=== PATIENT | female | born 1940 | race Caucasian/White ===

== ENCOUNTER 2016-12-25 08:56 | Outpatient (CLI) | payer MEDICARE, BC | END 2016-12-25 08:57 | disposition home or self-care (01) | LOC: LAB 08:56 | PROVIDERS: ATTEND Physician Assistant Medical | DX: I10 Essential (primary) hypertension (principal) | CPT/HCPCS: 36415; 86140 ==

== ENCOUNTER 2017-02-02 14:46 | Outpatient (CLI) | payer MEDICARE, BC | END 2017-02-02 14:47 | disposition critical access hospital (66) | LOC: EMS 14:46 | PROVIDERS: ATTEND Surgery | DX: R07.9 Chest pain, unspecified (principal) | CPT/HCPCS: A0425; A0427 ==

== ENCOUNTER 2017-02-02 14:59 | Emergency (ER) | payer MEDICARE, BC ==
[2017-02-02] MEDS ORDERED: NITROGLYCERIN 2% PASTE TOP STA (15:19)
[2017-02-02 15:46] LABS: BASOPHILS % (AUTO) 0.5 %; EOSINOPHILS # (AUTO) 0.2 10^3/uL (0.0-0.7); EOSINOPHILS % (AUTO) 2.6 %; HCT - HEMATOCRIT 40.9 % (37.0-47.0); HGB - HEMOGLOBIN 13.6 g/dL (12.0-16.0); LYMPHOCYTES # (AUTO) 1.3 10^3/uL (1.5-3.5); LYMPHOCYTES % (AUTO) 17.7 %; MEAN CORPUSCULAR HEMOGLOBIN 32.3 pg (27.0-31.0); MEAN CORPUSCULAR HGB CONC 33.3 g/dL (32.0-36.0); MEAN CORPUSCULAR VOLUME 97.2 fL (81.0-99.0); MEAN PLATELET VOLUME 7.3 fL (7.9-10.8); MONOCYTES # (AUTO) 0.4 10^3/uL (0.0-1.0); NEUTROPHILS # (AUTO) 5.3 10^3/uL (1.5-6.6); NEUTROPHILS % (AUTO) 73.2 %; RED BLOOD COUNT 4.21 10^6/uL (4.20-5.40); RED CELL DISTRIBUTION WIDTH 13.4 % (12.0-15.0); UNCORRECTED WHITE BLOOD COUNT 7.2 x10^3/uL; WHITE BLOOD COUNT 7.2 x10^3/uL (4.8-10.8)
--- NOTE | 2017-02-02 15:53 | XRAY Preliminary Report ---
Exam: XR CHEST 2 VIEW PA/LAT IMPRESSION: Left basilar infiltrate or atelectasis. [facility] SITE ID: [id number]
--- NOTE | 2017-02-02 15:55 | XRAY Report ---
EXAM: CHEST RADIOGRAPHY EXAM DATE: 02/02/2017 03:41 PM. CLINICAL HISTORY: Chest pain . COMPARISON: 09/24/2006. TECHNIQUE: 2 views. FINDINGS: Lungs/Pleura: Scarring or atelectasis in right costophrenic angle. Streaky atelectasis versus infiltr ate in left base. No consolidation, effusion, or pneumothorax. Mediastinum: Heart and mediastinal contours are unremarkable. Upper lobe vessels not distended. Other: Osteopenia, degenerative changes. IMPRESSION: Left basilar infiltrate or atelectasis. [facility] Referring Provider Line: [phone] SITE ID: [id number]
[2017-02-02 15:57] LABS: PT - PROTHROMBIN TIME 11.1 secs (9.9-12.6)
[2017-02-02 16:00] LABS: ALBUMIN/GLOBULIN RATIO 1.4 (1.0-2.2); BILIRUBIN,TOTAL 1.3 mg/dL (0.2-1.0); CALCIUM 9.5 mg/dL (8.5-10.3); POTASSIUM 3.8 mmol/L (3.5-5.0); TOTAL PROTEIN 6.9 g/dL (6.7-8.2)
[2017-02-02 16:14] LABS: PARTIAL THROMBOPLASTIN TIME 25.1 secs (24.9-33.3)
[2017-02-02] MEDS ORDERED: NITROGLYCERIN 2% PASTE TOP ONE (16:25)
[2017-02-02] MEDS ORDERED: EPINEPHrine ABBOJECT 1 MG/10 ML SYRINGE IVP ONE (19:00)
[2017-02-02] MEDS ORDERED: ATROPINE ABBOJECT 1 MG/10 ML SYRINGE IVP ONE (19:00)
[2017-02-02] MEDS ORDERED: EPINEPHrine 4 MG in DEXTROSE 5% 246 ML IVP STA (19:33)
[2017-02-02] MEDS ORDERED: SODIUM CHLORIDE 0.9% 1,000 ML IV ONE (19:33)
[2017-02-02] MEDS ORDERED: ALTEPLASE 100 MG in WATER FOR INJECTION,STERILE 100 ML IV STA (19:35)
--- NOTE | 2017-02-02 19:37 | ED Physician Documentation ---
History of Present Illness - Stated complaint Stated Complaint: CHEST PN - Chief complaint Chief Complaint: Cardiac - History obtained from History obtained from: Patient (pt here for evaluation of retrosternal chest presure. she staes that it started earlier today when she was out in the garden and bent over. she states that initially shehad the pressure that went away then returned. states that occured 1-2 hours prior to arrival in the ER. possible some shortness of breath. no headache, no vision changes, no leg pain , no abdominal pain, no nausea or vomiting. No prior cardiac history (HTN), no prior blood clots.) - History of Present Illness Timing: Prior to arrival Quality: pressure Radiates to: no radiation Improved by: nothing Worsened by: not worse with palpation or movement Associated symptoms: none Review of Systems Constitutional: denies: Fever, Chills, Fatigue Eyes: denies: Loss of vision Ears: denies: Tinnitus/ringing Nose: denies: Congestion, Sinus pressure / pain Throat: denies: Sore throat Cardiac: reports: Chest pain / pressure. denies: Palpitations, Pedal edema, Calf pain Respiratory: denies: Dyspnea, Cough, Hemoptysis, Wheezing GI: denies: Abdominal Pain, Nausea, Vomiting, Constipation, Diarrhea : denies: Dysuria, Frequency Skin: denies: Rash, Lesions, Abrasion (s) Musculoskeletal: denies: Neck pain, Back pain, Extremity pain, Joint pain, Extremity swelling Neurologic: denies: Generalized weakness, Focal weakness, Headache PD PAST MEDICAL HISTORY - Past Medical History Cardiovascular: Hypertension Musculoskeletal: Gout - Past Surgical History Past Surgical History: Yes /CAT AND DOG BATHER: Tubal ligation - Present Medications Home Medications: Ambulatory Orders Medication Instructions Recorded Confirmed Metoprolol Succinate [Toprol Xl] 50 mg PO DAILY 02/08/13 02/02/17 Sertraline HCl [Zoloft] 25 mg PO 02/08/13 02/08/13 - Allergies Allergies/Adverse Reactions: Allergies Allergy/AdvReac Type Severity Reaction Status Date / Time No Known Drug Allergies Allergy Verified 02/02/17 15:11 - Social History Does the pt smoke?: No Smoking Status: Never smoker Does the pt drink ETOH?: Yes - Immunizations Immunizations are current?: No Immunizations: TDAP >10years/unknown PD ED PE NORMAL - Vitals Vital signs reviewed: Yes (recorded temp incorrect) - General General: Alert and oriented X 3, No acute distress - HEENT HEENT: Atraumatic, Moist mucous membranes - Cardiac Cardiac: RRR, No murmur, No gallop, No rub - Respiratory Respiratory: No respiratory distress, Clear bilaterally - Abdomen Abdomen: Soft, Non tender - Female Female : Deferred - Rectal Rectal: Deferred - Derm Derm: Normal color, Warm and dry, No rash - Extremities Extremities: No tenderness to palpate, No edema, No calf tenderness / cord - Neuro Neuro: Alert and oriented X 3, No motor deficit, Normal speech Eye Opening: Spontaneous Motor: Obeys Commands Verbal: Oriented GCS Score: 15 - Psych Psych: Normal mood, Normal affect Results - Vitals Vitals: Vital Signs - 24 hr 02/02/17 02/02/17 02/02/17 15:16 16:22 18:39 Temperature 2.4 C L Heart Rate 64 60 136 H Respiratory 18 16 Rate Blood Pressure 152/91 H 154/81 H 67/58 L O2 Saturation 99 97 02/02/17 02/02/17 02/02/17 18:40 18:42 21:45 Temperature 36.4 C L Heart Rate 60 107 H 80 Respiratory 24 24 Rate Blood Pressure 121/72 O2 Saturation 97 Oxygen O2 Source Room air - EKG (time done) 1507 Rate: Rate (enter#) Rhythm: NSR [place]: LAD Intervals: QRS normal, Other (Pr 152 ms) QRS: Normal Ischemia: Normal ST segments - Labs Labs: Laboratory Tests 02/02/17 02/02/17 02/02/17 15:39 15:39 15:39 WBC 7.2 RBC 4.21 Hgb 13.6 Hct 40.9 MCV 97.2 MCH 32.3 H MCHC 33.3 RDW 13.4 Plt Count 235 MPV 7.3 L Neut # 5.3 Lymph # 1.3 L [place] # 0.4 Eos # 0.2 Baso # 0.0 Absolute Nucleated RBC 0.00 Nucleated RBC % 0.0 PT 11.1 INR 1.0 APTT 25.1 Sodium 141 Potassium 3.8 Chloride 105 Carbon Dioxide 23 Anion Gap 13.0 BUN 17 Creatinine 1.0 Estimated GFR (MDRD) 54 L Glucose 126 H Calcium 9.5 Total Bilirubin 1.3 H AST 23 ALT 17 Alkaline Phosphatase 61 Troponin I B-Natriuretic Peptide Total Protein 6.9 Albumin 4.0 Globulin 2.9 Albumin/Globulin Ratio 1.4 Lipase 33 02/02/17 02/02/17 15:39 15:39 WBC RBC Hgb Hct MCV MCH MCHC RDW Plt Count MPV Neut # Lymph # [place] # Eos # Baso # Absolute Nucleated RBC Nucleated RBC % PT INR APTT Sodium Potassium Chloride Carbon Dioxide Anion Gap BUN Creatinine Estimated GFR (MDRD) Glucose Calcium Total Bilirubin AST ALT Alkaline Phosphatase Troponin I < 0.04 B-Natriuretic Peptide 45 Total Protein Albumin Globulin Albumin/Globulin Ratio Lipase - Rads (name of study) CXR Radiology: Prelim report reviewed, EMP read contemporaneously Procedures - Intubation Provider: Emergency physician Medications: Other (none) Blade: [place] Tube: Size-enter number (7.5), Cuffed Route: Oral Confirmation: Direct visualization, No abdominal breath sound, End tidal CO2 Complications: No compications - Central Line Central Line Preparation: Unable to obtain consent Central line location: Right Femoral Central line type: Triple lumen Central line aftercare: Secured, No complications PD MEDICAL DECISION MAKING - ED course ED course: pt arrived to the ER in stable condition. ambulated to the room. had a relatively normal initial exam. ECG unremarkable for STEMI, labs unremarkable. CXR with possible LLL PNA. I was called to the room after the patient was found in the bathroom of the room on the floor w/o a pulse and not breathing. Pt was moved to the bed. CPR started. O2 provided by BVM. patient received multiple rounds of EPI and with every pulse check was PEA. She did receive a dose of bicarb also. We did obtain ROSC and the patient was placed on an epi GTT. A right femoral central line was placed with ultrasound w/o problems. After completion of the central line the pt became bradycardic and we again lost pulses. multiple more rounds of epi were given. Pt was continued on the Epi GTT. she was start on levophed drip also. With her chest pain and LLL PNA on the CXR there was concern that this was actually a PE. TPA was given on the second resus episode. During this second round the pt was again in PEA during all pulse checks. Blood glucose was checked and it was > 100. labs were again reviewed and no reversible cause was found. Patients arrived in the ER. I had a discussion with him regarding his 's care. In informed him that we were doing CPR. I invited him to the bedside and he came to the room but did not enter. after multiple rounds of epi the decision was made to halt further efforts. The was informed of the . After several hours the two daughters arrived at bedside and I had a long discussion with the and the two daughters about the situation. We talked about how this may have been a massive IN or a PE. We discussed the initial labs and ECG and CXR findings. They had no further questions regarding the care at this time. - Critical Care Time(min): 70 Time Includes: Direct patient care, Coordinate care, Family consult for tx dec Data interpretation: Labs, Pulse ox, Cardiac output Procedures included in critical care time: Ventilator mgmt Procedures excluded from critical care time: Central IV, Intubation, CPR Departure - Departure Disposition: 20 Clinical Impression: Chest pain, Cardiac arrest
[2017-02-02] MEDS ORDERED: SODIUM CHLORIDE INHALATION 3 ML NEB ONE (20:52)
[2017-02-03 00:04] VITALS: BP 67/58
== END 2017-02-03 02:22 | disposition expired ==
LOC: EDUNIT# → ED 14:59
DX: I46.9 Cardiac arrest, cause unspecified (principal); R07.9 Chest pain, unspecified; I10 Essential (primary) hypertension; M10.9 Gout, unspecified
CPT/HCPCS: 31500; 36415; 36556; 71020; 80053; 83690; 83880; 84484; 85025; 85610; 85730; 92950; 93005; 99291; A9270; J2997; 99285